=== PATIENT | female | born 1940 | race Caucasian/White ===

== ENCOUNTER 2019-10-28 05:00 | Observation (INO) | payer MEDICARE ==
[2019-10-24 16:15] LABS: ALANINE AMINOTRANSFERASE 19 IU/L (0-55); ALBUMIN 3.7 g/dL (3.5-5.0); ALBUMIN/GLOBULIN RATIO 1.2 (0.8-2.0); ALKALINE PHOSPHATASE 163 IU/L (40-150); ANION GAP 12.1 mmol/L (8-16); BLOOD UREA NITROGEN 17 mg/dL (7-26); BUN/CREATININE RATIO 23 (6-25); CALCIUM 10.4 mg/dL (8.4-10.2); CARBON DIOXIDE 27 mmol/L (22-29); CHLORIDE 106 mmol/L (98-107); CREATININE, SERUM 0.74 mg/dL (0.57-1.11); EST GLOMERULAR FILTRATION RATE > 60 ML/MIN (60-); GLUCOSE 89 mg/dL (74-118); POTASSIUM 4.1 mmol/L (3.5-5.1); SODIUM 141 mmol/L (136-145)
[2019-10-24 16:23] LABS: BASOPHILS % 0.3 % (0.0-1.0); EOSINOPHILS # (AUTO) 0.2 (0.0-0.4); EOSINOPHILS % 3.4 % (0.0-6.0); HEMATOCRIT 42.7 % (34.2-44.1); HEMOGLOBIN 14.1 g/dL (12.0-16.0); LYMPHOCYTES # (AUTO) 1.6 (1.0-3.2); LYMPHOCYTES % 27.3 % (18.0-39.1); MEAN CORPUSCULAR HEMOGLOBIN 29.6 pg (28-32); MEAN CORPUSCULAR VOLUME 89.5 fL (81-99); MONOCYTES # (AUTO) 0.6 (0.2-0.8); MONOCYTES % 9.9 % (4.4-11.3); NEUTROPHILS # (AUTO) 3.4 (2.1-6.9); NEUTROPHILS % 58.8 % (38.7-80.0); PLATELET COUNT 209 x10e3/uL (140-360); RED BLOOD COUNT 4.77 x10e6/uL (3.6-5.1); RED CELL DISTRIBUTION WIDTH 12.5 % (11.7-14.4)
--- NOTE | 2019-10-24 16:48 | Diagnostic Imaging Report ---
Chest, 2 views, 10/24/2019. History: Preop, hysterectomy. Comparison: None available. Findings: The cardiomediastinal silhouette and pulmonary vasculature are within normal limits. A calcified granuloma is noted in the left apex. The lungs are otherwise clear without evidence of consolidation or pleural effusion. Retrocardiac rounded density with air-fluid level is consistent with hiatal hernia. There are no acute osseous or soft tissue abnormalities. Impression: No acute cardiopulmonary abnormality. Moderate size hiatal hernia is noted. Signed by: Nikolas Levin on 10/24/2019 4:45 PM
[~2019-10-28] VITALS: Ht 154.9 cm; Wt 60.8 kg
[~2019-10-28 05:00] MED LIST: ALKA-SELTZER H1 EAC1 PO; ANTACID PLUS A355 M1 PO; CALCIUM ACETAT667 MG PO; FISH, FLAX, BORAGE PO; FOCUS FACTOR PO; METOPROLOL SUCC25 MG PO; MULTI-VITAMIN1 EACH PO; TIZANIDINE HCL4 MG PO; VITAMIN B-121000 MC1 SL; VITAMIN D3400 UNIT PO; Z.0.ATORVASTATIN CA1; Z.0.BACLOFEN10 MG PO; Z.0.GABAPENTIN300 MG PO; Z.0.LORTAB 7.5-5001 PO; Z.0.LOVENOX40 MG/0.4 SQ; Z.0.MELOXICAM7.5 MG PO; Z.0.METOPROLOL SUCC5 PO; Z.0.OMEPRAZOLE20 M1 PO; Z.0.ULTRAM 50MG50 MG
--- OUTSIDE RECORDS SUMMARY | 2019-10-28 05:12 | XMS REPORT ---
Author Author [facility] Address Unknown Phone Unavailable Care Team Providers Care Credit Collections Specialist Name Role Phone Brandy PALOMARES Unavailable Unavailable Payers Payer Name Policy Type Policy Number Effective Date Expiration Date Problems This patient has no known problems. Allergies, Adverse Reactions, Alerts This patient has no known allergies or adverse reactions. Medications This patient has no known medications. Results Test Description Test Time Test Comments Text Results Atomic Results Result Comments CHEST 2 VIEWS 2019-10-24 16:44:00 [place] [address] Patient Name: NADEGE CLAUDIO MR #: [id number] : 1940 Age/Sex: 78/F Req #: [id number] Adm Physician: Ordered by: ASHWIN PALOMARES MD Report #: [id number] Location: OR Room/Bed: Procedure: [id number] DX/CHEST 2 VIEWS Exam Date: 10/24/19 Exam Time: 1623 REPORT STATUS: Signed Chest, 2 views, 10/24/2019. History: Preop, hysterectomy. Comparison: None available. Findings: The cardiomediastinal silhouette and pulmonary vasculature are within normal limits. A calcified granuloma is noted in the left apex. The lungs are otherwise clear without evidence of consolidation or pleural effusion. Retrocardiac rounded density with air-fluid level is consistent with hiatal hernia. There are no acute osseous or soft tissue abnormalities. Impression: No acute cardiopulmonary abnormality. Moderate size hiatal hernia is noted. Signed by: Uri Levin on 10/24/2019 4:45 PM Dictated By: URI LEVIN MD 44 Transcribed By: ZULLY on 10/24/191644 COPY TO: ASHWIN PALOMARES MD CHEST 2 VIEWS 2019-01-06 13:45:00 [place] [address] Patient Name: NADEGE CLAUDIO MR #: [id number] : 1940 Age/Sex: 78/F Req #: [id number] Adm Physician: Ordered by: ASHWIN MARTINEZ MD Report #: [id number] Location: OR Room/Bed: Procedure: [id number] DX/CHEST 2 VIEWS Exam Date: 01/06/19 Exam Time: 1230 REPORT STATUS: Signed EXAM: CHEST 2 VIEWS, PA and lateral DATE: 01/06/[address] amp on exam: 12:43 PM INDICATION: Preoperative COMPARISON: None FINDINGS: LINES/TUBES: None LUNGS: No consolidations or edema. Left upper lobe calcified granuloma. Right mid lung zone noncalcified pulmonary nodule. CT scan of the chest is recommended for further evaluation. PLEURA: No effusions or pneumothorax. HEART AND MEDIASTINUM: Normal size and contour. There is a moderate-sized hiatal hernia present. BONES AND SOFT TISSUES: No acute findings. Degenerative spurring of the spine. IMPRESSION: 1. No acute thoracic abnormality. 2. Indeterminate right midlung zone pulmonary nodule. Signed by: Dr. Danielle Finnegan DO on 01/06/2019 1:47 PM Dictated By: DANIELLE FINNEGAN DO 1347 Transcribed By: ZULLY on 01/06/19 1343 COPY TO: ASHWIN MARTINEZ MD
[2019-10-28] MEDS ORDERED: BUPIVACAINE 0.5%/EPI 30 ML SDV INJ ONE (07:22)
[2019-10-28] MEDS ORDERED: ESTROGENS CONJUGATED VAGINAL CR 45 GM TUBE PV ONE (07:22)
[2019-10-28] MEDS ORDERED: ONDANSETRON HCL INJ 2MG/ML 2ML 2 MG/ML VIAL IV PRN (08:15)
[2019-10-28] MEDS ORDERED: HYDROCODONE/APAP 5MG-325MG TAB PO PRN (08:15)
[2019-10-28] MEDS ORDERED: SIMETHICONE 80 MG CHEW PO PRN (08:15)
[2019-10-28] MEDS ORDERED: DIPHENHYDRAMINE HCL 25 MG CAP PO PRN (08:15)
[2019-10-28] MEDS ORDERED: HYDROMORPHONE 1MG/1ML INJ IV PRN (08:15)
[2019-10-28] MEDS ORDERED: BACLOFEN 10 MG TAB PO PRN (08:15)
[2019-10-28] MEDS ORDERED: CLINDAMYCIN PHOS 900MG/ 50ML 50 ML IV ONE (08:25)
[2019-10-28] MEDS ORDERED: METRONIDAZOLE 500MG/NS 100ML 100 ML IV ONE (08:26)
[2019-10-28] MEDS: GABAPENTIN 300 MG CAP PO SCH ×3 (09:00→20:30)
[2019-10-28] MEDS ORDERED: ENOXAPARIN 30 MG/0.3 ML SYR SC SCH (09:00)
[2019-10-28] MEDS: DOCUSATE SODIUM 100 MG CAP PO SCH ×2 (09:00→16:33)
[2019-10-28] MEDS ORDERED: SUGAMMADEX SODIUM 200 MG/2 ML VIAL IV ONE (09:14)
[2019-10-28] MEDS ORDERED: FENTANYL CITRATE/PF 100MCG/2 ML INJ ONE ×2 (10:50→18:17)
[2019-10-28] MEDS: ACETAMINOPHEN 325 MG TAB PO SCH ×3 (12:00→23:50)
[2019-10-28] MEDS ORDERED: MEPERIDINE HCL INJ 25 MG/ML VIAL ONE (12:18)
[2019-10-28 13:47] VITALS: BP 152/72
[2019-10-28 13:48] VITALS: BP 152/72
[2019-10-28 13:51] VITALS: BP 152/72
[2019-10-28] MEDS ORDERED: LIDOCAINE HCL 2% LOCAL INJ 5 ML SDV VIAL INJ ONE (14:06)
[2019-10-28] MEDS ORDERED: ONDANSETRON HCL INJ 2MG/ML 2ML 2 MG/ML VIAL ONE (14:06)
[2019-10-28] MEDS ORDERED: GLYCOPYRROLATE INJ 0.2 MG/ML VIAL ONE (14:06)
[2019-10-28] MEDS ORDERED: DEXAMETHASONE SOD PHOS INJ 4 MG/ML VIAL ONE (14:06)
[2019-10-28] MEDS ORDERED: ACETAMINOPHEN 1000 MG/100 ML IV ONE (14:06)
[2019-10-28] MEDS ORDERED: ROCURONIUM BROMIDE 10 MG/ML 5ML VIAL ONE (14:06)
[2019-10-28] MEDS ORDERED: PROPOFOL IV EMULSION 10 MG/ML 20 ML VIAL ONE (14:06)
[2019-10-28] MEDS ORDERED: SEVOFLURANE INHAL SOLN 250 ML PEN BTL ONE (14:06)
[2019-10-28] MEDS ORDERED: EPHEDRINE SULFATE INJ 50 MG/ML VIAL ONE (14:06)
[2019-10-28] MEDS: HYDROCODONE/APAP 10MG-325MG TAB PO PRN (14:19)
[2019-10-28] MEDS: LACTATED RINGER'S 1,000 ML IV SCH ×3 (14:25→23:40)
[2019-10-28 16:24] VITALS: BP 141/67
[2019-10-28] MEDS: METOPROLOL SUCCINATE 25 MG TAB XL PO SCH (16:28)
[2019-10-28] MEDS: CELECOXIB 200 MG CAP PO SCH (16:33)
[2019-10-28] MEDS: OMEPRAZOLE 20 MG CAP PO SCH (16:33)
[2019-10-28 20:00] VITALS: BP 101/54
[2019-10-28] MEDS ORDERED: BISACODYL 5 MG TAB EC PO ONE (20:00)
[2019-10-28] MEDS: ENOXAPARIN 30 MG/0.3 ML SYR SC SCH (20:30)
[2019-10-28 21:00] VITALS: BP 97/56
[2019-10-28] MEDS ORDERED: TIZANIDINE HCL 4 MG TAB PO PRN (21:00)
[2019-10-29] VITALS (7 sets, daily range): BP systolic 84–119; BP diastolic 46–56
[2019-10-29 05:47] LABS: BASOPHILS % 0.2 % (0.0-1.0); EOSINOPHILS # (AUTO) 0.1 (0.0-0.4); EOSINOPHILS % 0.5 % (0.0-6.0); HEMOGLOBIN 11.2 g/dL (12.0-16.0); LYMPHOCYTES # (AUTO) 1.4 (1.0-3.2); LYMPHOCYTES % 14.8 % (18.0-39.1); MEAN CORPUSCULAR HEMOGLOBIN 29.9 pg (28-32); MEAN CORPUSCULAR HGB CONC 32.9 g/dL (31-35); MEAN CORPUSCULAR VOLUME 90.9 fL (81-99); MONOCYTES % 11.1 % (4.4-11.3); NEUTROPHILS # (AUTO) 6.7 (2.1-6.9); PLATELET COUNT 156 x10e3/uL (140-360); RED BLOOD COUNT 3.74 x10e6/uL (3.6-5.1); RED CELL DISTRIBUTION WIDTH 12.6 % (11.7-14.4)
[2019-10-29] MEDS ORDERED: METOPROLOL SUCCINATE 25 MG TAB XL PO SCH (06:00)
[2019-10-29 06:08] LABS: ANION GAP 8.2 mmol/L (8-16); BLOOD UREA NITROGEN 15 mg/dL (7-26); BUN/CREATININE RATIO 21 (6-25); CALCIUM 9.3 mg/dL (8.4-10.2); CARBON DIOXIDE 27 mmol/L (22-29); CHLORIDE 106 mmol/L (98-107); CREATININE, SERUM 0.73 mg/dL (0.57-1.11); EST GLOMERULAR FILTRATION RATE > 60 ML/MIN (60-); GLUCOSE 104 mg/dL (74-118); POTASSIUM 4.2 mmol/L (3.5-5.1); SODIUM 137 mmol/L (136-145)
[2019-10-29] MEDS: ACETAMINOPHEN 325 MG TAB PO SCH ×2 (06:29→12:35)
[2019-10-29] MEDS: OMEPRAZOLE 20 MG CAP PO SCH ×2 (06:29→16:55)
[2019-10-29] MEDS: CELECOXIB 200 MG CAP PO SCH ×2 (08:44→16:56)
[2019-10-29] MEDS: ENOXAPARIN 30 MG/0.3 ML SYR SC SCH (08:45)
[2019-10-29] MEDS: DOCUSATE SODIUM 100 MG CAP PO SCH ×2 (08:45→16:56)
[2019-10-29] MEDS: GABAPENTIN 300 MG CAP PO SCH ×2 (08:45→15:00)
[2019-10-29] MEDS: HYDROCODONE/APAP 10MG-325MG TAB PO PRN (08:57)
[2019-10-29] MEDS ORDERED: Celecoxib PO (09:13)
[2019-10-29] MEDS ORDERED: GABAPENTIN300 MG PO (09:13)
[2019-10-29] MEDS ORDERED: Hydrocodone/Apap 5MG-325MG PO (09:13)
[2019-10-29] MEDS ORDERED: COLACE100 MG PO (09:13)
[2019-10-29] MEDS ORDERED: ONDANSETRON HCL 4 MG ORAL DISINTEGRATING TAB PO PRN (11:15)
[2019-10-29] MEDS ORDERED: BACLOFEN 10 MG TAB PO SCH (15:15)
[2019-10-29] MEDS: METOPROLOL SUCCINATE 25 MG TAB XL PO SCH (16:30)
[2019-10-30] MEDS ORDERED: NITROFURANTOIN100 MG (21:10)
[2019-10-30] MEDS ORDERED: PHENAZOPYRIDIN100 MG PO (21:11)
--- NOTE | 2019-12-16 14:11 | Operative Report ---
DATE OF PROCEDURE: 10/28/2019 SURGEON: Arlene Elizabeth MD STUDENT SUPPORT SERVICES DIRECTOR: Radha Thompson MD PREOPERATIVE DIAGNOSIS: Pelvic organ prolapse. POSTOPERATIVE DIAGNOSIS: Pelvic organ prolapse. PROCEDURE PERFORMED: Transvaginal hysterectomy with a right salpingectomy and an anterior and posterior colporrhaphy, and a sacrospinous colpopexy. ANESTHESIA: General. ESTIMATED BLOOD LOSS: 350 mL. COMPLICATIONS: None. FINDINGS: A small uterus with complete procidentia, atrophic vaginal mucosa, unable to palpate the adnexa bilaterally as they were small and atrophic. SPECIMEN: Uterus with left fallopian tube. INDICATIONS: The patient is a 78-year-old postmenopausal female with pelvic organ prolapse, desiring definitive surgical management. PROCEDURE NOTE: The risks, benefits, indications, and alternatives of the procedure were reviewed with the patient and informed consent was obtained. The patient was taken operating room, where general anesthesia was obtained. She was placed in dorsal lithotomy position in [facility] stirrups, prepped and draped in typical sterile fashion and a time-out was done. A weighted speculum was placed in the vagina and the cervix was grasped with two single-tooth tenaculum. A solution of Marcaine and epinephrine was injected circumferentially around the cervix. The cervix was circumscribed and the bladder was dissected off with sharp dissection. The posterior cul-de-sac was sharply entered and a long weighted gooseneck retractor was placed in the cul-de-sac and replacement of the standard weighted speculum. The right uterosacral ligament was then identified, clamped with a zeppelin clamp, divided, and suture ligated with 0-Vicryl in a like fashion. The left uterosacral ligament was clamped, divided, and suture ligated. The left cardinal ligament and uterine vessels were then identified. Sequentially clamped, coagulated and cut with the LigaSure device, this was followed by sequential clamping coagulation and cutting of the cardinal ligaments and uterine vessels on the right with a LigaSure device. The anterior cul-de-sac was sharply dissected until the vesicouterine peritoneal reflection was identified and this was entered sharply. The right utero-ovarian ligament and fallopian tube were clamped with a curved zeppelin clamp, divided, and suture ligated. This was again performed on the contralateral side. The uterus and cervix were then removed over through the vagina and sent for pathology. The adnexa on the left were unable to be visualized and the right adnexa was unable to be visualized except for the fallopian tube. This was grasped with a Elk clamp and the fallopian tube was clamped with a curved zeppelin clamp, divided and suture ligated. This was sent with the remainder of the specimen. All hysterectomy pedicles were then inspected, noted to be hemostatic. The lateral edges of the vaginal cuff were then held with Allis clamps on tension while solution of Marcaine with epinephrine was injected just below the vaginal mucosa throughout the area of the cystocele. Several Allis clamps were placed 3-4 cm apart of the midline of the anterior vaginal wall. The Metzenbaum scissors were used to undermine the mucosa from the underlying fascia. The mucosa was then opened with the scissors in the midline to within 1 cm of the urethral meatus. The vagina was opened. The edges of mucosa were grasped with hemostats. The fascia was from the vaginal mucosa using both sharp and blunt dissection until the bladder and urethra were from the vaginal mucosa and clearly identified. A finger was then inserted through the incision in the vaginal mucosa and used to bluntly dissect the rectovaginal space on the patient's right side. The ischial spine and sacrospinous ligament were palpated and loose areolar tissue was bluntly dissected off the ligament. A zone approximately 1-2 cm medial to the ischial spine was selected for insertion of the suture. A Capio SLIM suture capturing device was then loaded with zero Vicryl suture and was introduced into the space and passed through the sacrospinous ligament. This entire procedure was then repeated on the patient's contralateral side. The ends of the suture previously inserted through the sacrospinous ligament were then placed through the muscular layer of the vagina again using the Capio SLIM device. Attention was then returned to the anterior repair, which was started by placing 0 Vicryl sutures in the pubovesical cervical fascia starting approximately 1 cm below the urethral meatus. The remaining fascia was plicated in the midline with multiple interrupted 0 Vicryl sutures until the entire cystocele had been reduced. The edges of the vaginal mucosa were held on tension. The excessive vaginal mucosa was trimmed away using Sousa scissors. The vaginal mucosa was then sutured in the midline with continuous 0 Vicryl. The vaginal cuff was then closed. The vaginal cuff was inspected and noted to be hemostatic. Attention was then returned to the sacrospinous ligament fixation, where the previously clamped sutures were tied drawing the vaginal vault directly to the level of the ligaments and then affixing them in place. The apices of the posterior fourchette were then grasped with Allis clamps and a solution of Marcaine with epinephrine was injected just below the vaginal mucosa throughout the area of the rectocele. A transverse incision was made with a scalpel at the level of the hymenal ring. An additional Allis clamp was placed in the midline at the top of the rectocele and two hemostats were placed at the edge of the mucosa for retraction. Metzenbaum scissors were then inserted under the posterior vaginal mucosa dissecting the posterior mucosa off the rectovaginal fascia. A midline incision was then made in the mucosa and possibly repeated until the superior apex of the rectocele was reached. Interrupted sutures of 0 Vicryl were placed to reapproximate the superficial transverse perineal muscle and levator ani muscle respectively. The vagina was then closed over this repair using running 2-0 Vicryl suture. The bulbocavernosus was reapproximated in the midline with a single interrupted 2-0 Vicryl suture. The perineum was then repaired using 2-0 Vicryl in a subcuticular fashion. Vaginal packing soaked in Premarin cream was placed in the vagina and all instruments were removed. The patient was awakened from general anesthesia and brought to recovery room in stable condition. All sponge, lap, needle, and instrument counts were correct x2. MD ASHVIN Faustin/MODL /[id number]
== END 2019-10-29 18:03 | disposition home or self-care (01) ==
LOC: OR 05:00 → PACU V 08:12 → MED/SURG 13:20
PROVIDERS: ADMIT Obstetrics & Gynecology Obstetrics; ATTEND Obstetrics & Gynecology Obstetrics
DX: N81.3 Complete uterovaginal prolapse (principal); R33.9 Retention of urine, unspecified; Z01.810 Encounter for preprocedural cardiovascular examination; Z01.812 Encounter for preprocedural laboratory examination; Z01.811 Encounter for preprocedural respiratory examination; Z88.0 Allergy status to penicillin; K44.9 Diaphragmatic hernia without obstruction or gangrene
CPT/HCPCS: 36415; 71046; 80048; 80053; 85025; 86850; 86900; 88307; 93005; G0378; J1100; J1170; J1650; J2001; J2175; J2405; J3010; J7121

== ENCOUNTER 2019-10-30 13:17 | Inpatient (IN) | payer MEDICARE, OTHER ==
[~2019-10-30] VITALS: Ht 154.9 cm; Wt 61.5 kg
[~2019-10-30 13:17] MED LIST changes: +COLACE100 MG PO; +Celecoxib PO; +GABAPENTIN300 MG PO; +Hydrocodone/Apap 5MG-325MG PO
[2019-10-30] MEDS ORDERED: MORPHINE SULFATE INJ 4 MG/ML INJ 1ML IV STA (13:25)
[2019-10-30] MEDS ORDERED: SODIUM CHLORIDE 0.9% 1000ML 1,000 ML IV STA (13:25)
[2019-10-30 14:10] LABS: BASOPHILS % 0.2 % (0.0-1.0); EOSINOPHILS # (AUTO) 0.1 (0.0-0.4); EOSINOPHILS % 0.8 % (0.0-6.0); HEMATOCRIT 37.3 % (34.2-44.1); HEMOGLOBIN 12.3 g/dL (12.0-16.0); LYMPHOCYTES # (AUTO) 0.9 (1.0-3.2); LYMPHOCYTES % 9.4 % (18.0-39.1); MEAN CORPUSCULAR HEMOGLOBIN 29.9 pg (28-32); MEAN CORPUSCULAR VOLUME 90.5 fL (81-99); MONOCYTES # (AUTO) 0.8 (0.2-0.8); MONOCYTES % 7.8 % (4.4-11.3); NEUTROPHILS # (AUTO) 7.8 (2.1-6.9); NEUTROPHILS % 81.5 % (38.7-80.0); PLATELET COUNT 164 x10e3/uL (140-360); RED BLOOD COUNT 4.12 x10e6/uL (3.6-5.1); RED CELL DISTRIBUTION WIDTH 12.6 % (11.7-14.4)
[2019-10-30 14:27] LABS: ALANINE AMINOTRANSFERASE 29 IU/L (0-55); ALBUMIN 3.3 g/dL (3.5-5.0); ALBUMIN/GLOBULIN RATIO 1.1 (0.8-2.0); ALKALINE PHOSPHATASE 150 IU/L (40-150); BLOOD UREA NITROGEN 11 mg/dL (7-26); BUN/CREATININE RATIO 17 (6-25); CARBON DIOXIDE 26 mmol/L (22-29); CHLORIDE 107 mmol/L (98-107); CREATININE, SERUM 0.65 mg/dL (0.57-1.11); EST GLOMERULAR FILTRATION RATE > 60 ML/MIN (60-); GLUCOSE 87 mg/dL (74-118); SODIUM 141 mmol/L (136-145)
--- NOTE | 2019-10-30 16:14 | Diagnostic Imaging Report ---
Exam: CT abdomen and pelvis Clinical history: Left lower quadrant pain Technique: Helical images of the abdomen and pelvis were obtained after IV contrast administration DOSE REDUCTION: The exams was performed according to the departmental dose-optimization program which includes automated exposure control, adjustment of the mA and/or kV according to patient size and/or use of iterative reconstruction technique. Findings: The lung bases are clear. There is no evidence of pleural effusion. The cardiac size is within normal limits. A metallic stent is noted extending from the common bile duct into the proximal duodenum. Pneumobilia is visualized in the left intrahepatic ductal likely associated with stent placement. The gallbladder has been removed. The spleen, adrenal glands, kidneys, and pancreas appear unremarkable. The small and large bowels are normal in caliber without evidence of obstruction. Moderate retained feces are noted throughout the colon. Visualization of the lower pelvic regions limited secondary to right hip prosthesis creating being hardening artifact. A Brandt catheter is noted within the bladder lumen. The uterus appears grossly unremarkable. A 2.8 cm lytic lesion is noted in the L1 vertebral body which may represent hemangioma. However, a metastatic lesion cannot be excluded. MR is recommended for further assessment. Impression: 1. Status post internal biliary stent insertion with postoperative changes. 2. 2.8 cm lytic lesion in the L1 vertebral body, although this may represent a hemangioma, metastatic disease cannot be excluded. MR is recommended for further assessment. 3. Status post Brandt catheter insertion. Signed by: Dr. Davin Zepeda MD on 10/30/2019 4:11 PM
[2019-10-30] MEDS ORDERED: IOPAMIDOL 370 MG/ML 200 ML INFUS..BTL INJ ONE (16:28)
[2019-10-30] MEDS ORDERED: SODIUM CHLORIDE 0.9% 50ML 50 ML ONE (16:28)
[2019-10-30] MEDS ORDERED: MORPHINE SULFATE 2 MG/ML SYR 1ML IV PRN (16:30)
[2019-10-30] MEDS: SODIUM CHLORIDE 0.9% 1000ML 1,000 ML IV SCH (16:57)
--- NOTE | 2019-10-30 17:58 | Diagnostic Imaging Report ---
EXAM: HIP RIGHT 2-3 VW (+/- PELVIS) DATE: 10/30/2019 4:16 PM INDICATION: ^R hip pain COMPARISON: CT pelvis, 10/30/2019 FINDINGS: AP pelvis and oblique views of the right hip were obtained. Right hip arthroplasty hardware is seen without obvious evidence for failure or loosening. There is minimal lucency adjacent to the tip of the prosthesis in the mid femoral shaft but not elsewhere. No displaced fracture or dislocation identified. Incidentally noted is contrast in the urinary bladder from previous CT, outlining a Brandt catheter. IMPRESSION: No acute bony abnormality. Arthroplasty hardware is seen at the right hip. Signed by: Dr. Keith Moura M.D. on 10/30/2019 5:56 PM
[2019-10-30] MEDS: MORPHINE SULFATE INJ 4 MG/ML INJ 1ML IV PRN ×2 (19:14→23:33)
[2019-10-30] MEDS: ONDANSETRON HCL INJ 2MG/ML 2ML 2 MG/ML VIAL IV PRN (19:15)
--- NOTE | 2019-10-30 19:50 | NUR ---
REPORT CALLED FROM ER, PATIENT PENDING ARRIVAL TO THE FLOOR, AWAKE ALERT, INTRACTABLE RIGHT HIP PAIN, WITH NO FALL, STATES PATIENT UNABLE TO BEAR WEIGHT ON LEG HX OF HTN, ACID REFLUX, HYPERLIPIDEMIA, BLADDER PROLAPSE WITH REPAIR PREVIOUS VISIT THIS MONTH, CONSULT CALLED TO [facility] PER ER
[2019-10-30 20:25] VITALS: BP 124/71
--- NOTE | 2019-10-30 20:30 | NUR ---
ARRIVED TO THE FLOOR AOX4, ABLE TO MAKE NEEDS KNOWN, VSS, AFEBRILE, SKIN WARM DRY, MEEHAN IN PLACE UPON ADMISSION FOR RETENTION S/P PROLAPSE REPAIR, ORIENTED TO STAFF, AND ROOM, CALL LIGHT PLACE WITHIN REACH
[2019-10-30 20:41] VITALS: BP 124/71
[2019-10-30] MEDS ORDERED: NITROFURANTOIN100 MG (21:10)
[2019-10-30] MEDS ORDERED: PHENAZOPYRIDIN100 MG PO (21:11)
[2019-10-31] VITALS (10 sets, daily range): BP systolic 111–138; BP diastolic 61–78
[2019-10-31] MEDS: SODIUM CHLORIDE 0.9% 1000ML 1,000 ML IV SCH ×3 (02:15→12:00)
--- NOTE | 2019-10-31 02:58 | NUR ---
HOURLY ROUNDING COMPLETED PATIENT RESTING NO DISTRESS C/O LOWER LEG PAIN 11/17, INFORMED PATIENT TIME OF PRN MEDICATION DUE, SHE IS OKAY WITH TIME, WILL CONTINUE TO MONITOR
[2019-10-31 05:44] LABS: BASOPHILS % 0.2 % (0.0-1.0); EOSINOPHILS # (AUTO) 0.3 (0.0-0.4); EOSINOPHILS % 3.1 % (0.0-6.0); HEMATOCRIT 34.2 % (34.2-44.1); HEMOGLOBIN 10.9 g/dL (12.0-16.0); LYMPHOCYTES # (AUTO) 1.3 (1.0-3.2); LYMPHOCYTES % 15.3 % (18.0-39.1); MEAN CORPUSCULAR HEMOGLOBIN 29.9 pg (28-32); MEAN CORPUSCULAR HGB CONC 31.9 g/dL (31-35); MEAN CORPUSCULAR VOLUME 93.7 fL (81-99); MONOCYTES # (AUTO) 0.9 (0.2-0.8); MONOCYTES % 10.4 % (4.4-11.3); NEUTROPHILS # (AUTO) 6.2 (2.1-6.9); NEUTROPHILS % 70.5 % (38.7-80.0); PLATELET COUNT 155 x10e3/uL (140-360); RED BLOOD COUNT 3.65 x10e6/uL (3.6-5.1); RED CELL DISTRIBUTION WIDTH 12.9 % (11.7-14.4)
[2019-10-31] MEDS: ONDANSETRON HCL INJ 2MG/ML 2ML 2 MG/ML VIAL IV PRN ×4 (05:53→22:05)
[2019-10-31] MEDS: MORPHINE SULFATE INJ 4 MG/ML INJ 1ML IV PRN ×4 (05:53→22:05)
[2019-10-31 06:04] LABS: ANION GAP 7.1 mmol/L (8-16); BLOOD UREA NITROGEN 11 mg/dL (7-26); BUN/CREATININE RATIO 19 (6-25); CALCIUM 9.3 mg/dL (8.4-10.2); CARBON DIOXIDE 26 mmol/L (22-29); CHLORIDE 112 mmol/L (98-107); CREATININE, SERUM 0.58 mg/dL (0.57-1.11); EST GLOMERULAR FILTRATION RATE > 60 ML/MIN (60-); GLUCOSE 79 mg/dL (74-118); POTASSIUM 4.1 mmol/L (3.5-5.1); SODIUM 141 mmol/L (136-145)
--- NOTE | 2019-10-31 07:03 | NUR ---
BSSR GIVEN TO ONCOMING RN, PATIENT AWAKE ALERT, REPORTS DECREASE PAIN LEVEL R/T RIGHT HIP PAIN, REPORT MORPHINE & ZOFRAN IV GIVEN AT 0553, VIA LAC#20G, IV PATENT FLUSHES WELL, NO S/SX OF INFILTRATION NOTED, BED IN LOWEST POSITION, CALL LIGHT WITHIN REACH, PT CONTINUES TO BE COMPLETE BEDREST
[2019-10-31] MEDS ORDERED: NON-FORMULARY MEDICATION (Omeprazole 20 MG) PO SCH (10:30)
--- NOTE | 2019-10-31 10:30 | NUR ---
H&P cc: right hip pain HPI: 78yoF, PCP none, developed right hip pain. Pt has hx right replacement.Pt also had recent urinary retention 2 days ago, after badder lift, meehan placed and pt sent home. PMH: OA, HTN, GERD, Biliary ds, urinary retention, right hip OA s/p replacement PShx: Right MOE; bladder lift 10/2019 Allergies; see emr FH/SH; no cigs meds; see MAR ROS; no f/c/s/N/V/D/SEBASTIAN/cp/sob/skin rash/back pain/leg pain/confusion/focal limb weakness v/s; revd PE tired appearing anicteric ns1s2 mod bs MEEHAN soft nt nd; right hip scar skin dry n. affect a&ox3; womack labs/med revd A/P: 78yoF Right hip arthralgia- ortho consulted Urinary retention- emehan for few days already; consult urology OA- prn pain meds Lytic lesion lumbar vertebra L1- unclear; will need bx; no hx breast cancer HTN- home med GERD- ppi Prop: ppi dispo: Ken Ohara MD, PhD.
[2019-10-31] MEDS ORDERED: PANTOPRAZOLE SOD 40 MG TABEC PO PRN ×2 (11:00)
[2019-10-31] MEDS: GABAPENTIN 300 MG CAP PO SCH ×2 (15:40→22:04)
[2019-10-31] MEDS ORDERED: GABAPENTIN 300 MG CAP PO SCH (17:00)
--- NOTE | 2019-10-31 17:00 | NUR ---
Received patient to room 108, she is in stable condition. Oriented to new room and policies. Call light within reach. Bed in the lowest position.
[2019-10-31] MEDS: DOCUSATE SODIUM 100 MG CAP PO SCH (17:19)
--- NOTE | 2019-10-31 19:00 | NUR ---
RECEIVED PATIENT IN BEDSIDE SHIFT REPORT. PATIENT RESTING IN BED AT THIS TIME, REPORTS MILD PAIN TO R HIP AND GAS DISCOMFORT. MEEHAN DRAINING CLEAR, YELLOW URINE TO GRAVITY, SECURED TO R THIGH, HANGING AT BEDSIDE, OFF OF FLOOR. NO S&S OF DISTRESS NOTED. NS RUNNING TO L AC 20G @ 125ML/HR, ASYMPTOMATIC, INTACT, AND PATENT. BED LOCKED IN LOWEST POSITION, SIDE RAILS UPX2, CALL LIGHT IN REACH.
--- NOTE | 2019-10-31 19:11 | NUR ---
BEDSIDE SHIFT REPORT GIVEN TO ONCOMING NURSE. PATIENT IS IN STABLE CONDITION, NO ACUTE DISTRESS. CALL LIGHT WITHIN REACH. BED IN THE LOWEST POSITION.
[2019-10-31] MEDS: TIZANIDINE HCL 4 MG TAB PO SCH (22:04)
--- NOTE | 2019-10-31 23:00 | NUR ---
URINE CULTURE OBTAINED AND SENT TO LAB AT THIS TIME.
[2019-10-31 23:20] LABS: CLARITY,URINE SL CLOUDY (CLEAR); COLOR,URINE YELLOW (YELLOW); LEUKOCYTE ESTERASE ,URINE 1+ (NEGATIVE); NITRITE,URINE POSITIVE (NEGATIVE); PROTEIN,URINE DIPSTICK NEGATIVE (NEGATIVE)
[2019-10-31 23:21] LABS: BILIRUBIN,URINE NEGATIVE (NEGATIVE); KETONES,URINE NEGATIVE (NEGATIVE); URINE UROBILINOGEN 1 mg/dL (0.2 - 1)
[2019-10-31 23:27] LABS: BACTERIA,URINE MANY /HPF; EPITHELIAL CELLS,URINE FEW /LPF; RENAL EPITHELIAL CELLS,URINE FEW; TRANSITIONAL EPI CELLS,URINE FEW; WBC,URINE (MAN) >50 /HPF (0-5)
[2019-11-01] VITALS (8 sets, daily range): BP systolic 111–150; BP diastolic 65–77
--- NOTE | 2019-11-01 00:24 | Consultation ---
DATE OF CONSULTATION: 10/31/2019 Urology Consultation REASON FOR CONSULTATION: Urinary retention. HISTORY OF PRESENT ILLNESS: Kelsie Estrada is a 78-year-old woman who on October 28, 2019, underwent a total vaginal hysterectomy with a right salpingectomy and an anterior and posterior repair and a sacrospinous colpopexy. The patient was discharged the next day. She returned to the emergency room yesterday with urinary retention and intractable right hip pain. The patient denies hematuria and she denies problems with recurrent urinary tract infection. Denies any urolithiasis. Denies ever seeing a urologist. It is unclear to me at this point in time, how much was in the bladder when the Brandt catheter was placed by the ER. PAST MEDICAL AND SURGICAL HISTORY: 1. Status post cholecystectomy. 2. Recurrent pancreatitis with needing biliary stent. 3. Status post right total hip arthroplasty. 4. Neuropathy. 5. Severe osteoporosis. SOCIAL HISTORY: The patient denies smoking, ethanol drug use. She used to work at [employer]. FAMILY HISTORY: Noncontributory to the active urological problems. ALLERGIES: PENICILLIN. CURRENT MEDICATIONS: Please refer the MAR. REVIEW OF SYSTEMS: Discussed as above in history of present illness, past medical history, otherwise negative for all systems. PHYSICAL EXAMINATION: GENERAL: A pleasant 78-year-old woman lying in bed, no apparent distress. VITAL SIGNS: She is currently afebrile. Vital signs are currently stable. ABDOMEN: Soft, nondistended, nontender without costovertebral angle tenderness. KIDNEYS: Not palpable without hepatosplenomegaly. No obvious evidence of hernia. GENITOURINARY: There is a Brandt catheter in place draining clear urine out. For the remaining physical examination systems please refer to the admission history and physical in the chart and the ERT sheet. LABORATORY STUDIES: White blood cell count is 8730, hemoglobin 10.9, and platelets a 155,000. The patient's creatinine is normal at 0.58. There are no urological tests during this visit. ASSESSMENT: 1. Urinary retention. 2. Brandt catheter in situ. 3. Possible neurogenic bladder from neuropathy. 4. Anemia. PLAN: 1. Leave the Brandt catheter in place. 2. Evaluate and improve right hip pain. 3. Follow up in the office for urodynamics test as outpatient. 4. I will order UA and urinalysis with microscopy and urine culture and sensitivity. 5. I defer the hematological and electrolyte abnormalities per the primary team. Thank you much for involving us in care of your patient. We will be happy to follow her along with you as well as an outpatient. Danny Serrano MD OH/MODL /[id number] cc: MD Telly Yen MD
[2019-11-01] MEDS: SODIUM CHLORIDE 0.9% 1000ML 1,000 ML IV SCH ×3 (01:13→21:23)
--- NOTE | 2019-11-01 06:06 | NUR ---
IM- progress note O/N; see below ROS; no f/c/s/N/V/D/SEBASTIAN/cp/sob/skin rash/back pain/leg pain/confusion/focal limb weakness v/s; revd PE tired appearing anicteric ns1s2 mod bs MEEHAN soft nt nd; right hip scar skin dry n. affect a&ox3; womack labs/med revd A/P: 78yoF Right hip arthralgia- ortho consulted Urinary retention- meehan for few days already; consult urology OA- prn pain meds Lytic lesion lumbar vertebra L1- unclear; will need bx; no hx breast cancer HTN- home med GERD- ppi Prop: ppi dispo: 11/01 PT; d/c planning with PT; L1 further eval outpt- pt informed. Ken Ohara MD, PhD.
[2019-11-01] MEDS ORDERED: AZTREONAM 1 GM/NS 50 ML 50 ML IV SCH (06:15)
[2019-11-01] MEDS ORDERED: ACETAMINOPHEN/CODEINE 300MG - 30MG TAB PO PRN (06:15)
[2019-11-01] MEDS: ONDANSETRON HCL INJ 2MG/ML 2ML 2 MG/ML VIAL IV PRN (06:40)
[2019-11-01] MEDS: MORPHINE SULFATE INJ 4 MG/ML INJ 1ML IV PRN ×3 (06:40→22:47)
--- NOTE | 2019-11-01 08:11 | NUR ---
Spoke to Dr. Ohara. He stated to admit to inpatient w/ complicated UTI post urology procedure. He also wants SNF eval due to the UTI and hip pain.
[2019-11-01] MEDS: AZTREONAM 1 GM/NS 50 ML 50 ML IV SCH ×3 (08:47→23:39)
[2019-11-01] MEDS: GABAPENTIN 300 MG CAP PO SCH ×3 (08:47→21:22)
[2019-11-01] MEDS: METOPROLOL SUCCINATE 25 MG TAB XL PO SCH (08:47)
[2019-11-01] MEDS: DOCUSATE SODIUM 100 MG CAP PO SCH ×2 (08:47→17:28)
[2019-11-01] MEDS ORDERED: LORAZEPAM INJ 2 MG/ML VIAL IV NR (10:30)
--- NOTE | 2019-11-01 11:03 | NUR ---
Medicated patient with the first dose of Ativan pre MRI at at this time.
[2019-11-01] MEDS: LORAZEPAM INJ 2 MG/ML VIAL IV NR ×2 (11:36→11:45)
--- NOTE | 2019-11-01 11:45 | NUR ---
Patient medicated before getting to MRI machine at this time.
--- NOTE | 2019-11-01 12:07 | NUR ---
Received SNF order. Met with pt, discussed referral process and freedom to choose the facility, pt chose [facility]. Choice letter signed and placed in the chart. Will fax clinicals when PT eval is completed
[2019-11-01] MEDS: SENNOSIDES 8.6 MG TAB PO SCH (17:28)
--- NOTE | 2019-11-01 19:00 | NUR ---
REPORT RECEIVED FROM DAY RN. PT ALERT AND ORIENTED X4. RESPIRATIONS EVEN AND UNLABORED.DENIES PAIN. ABDOMEN SOFT. MEEHAN CATH PATENT- TO GRAVITY. PIV LEFT AC. NS INFUSING AT 125ML/HR. TURNING PT Q 2HRS . PT HAVING CLEAR VAGINAL DISCHARGE.CALL LIGHT WITHIN REACH. BED IN LOW POSITION. CONTINUE TO MONITOR PT.
--- NOTE | 2019-11-01 19:26 | NUR ---
Bedside shift report given to oncoming nurse. Patient is resting in bed, no acute distress noted. Call light within reach. Bed in the lowest position.
[2019-11-01] MEDS: TIZANIDINE HCL 4 MG TAB PO SCH (21:22)
[2019-11-02] VITALS (9 sets, daily range): BP systolic 104–174; BP diastolic 63–87
[2019-11-02] MEDS: SODIUM CHLORIDE 0.9% 1000ML 1,000 ML IV SCH ×4 (00:30→22:42)
[2019-11-02] MEDS: MORPHINE SULFATE INJ 4 MG/ML INJ 1ML IV PRN ×4 (05:56→22:44)
[2019-11-02] MEDS: AZTREONAM 1 GM/NS 50 ML 50 ML IV SCH ×3 (06:28→22:41)
--- NOTE | 2019-11-02 06:48 | NUR ---
Received bedside shift report from off going nurse. Patient is in stable condition, no acute distress noted. Call light within reach. Bed in the lowest position.
--- NOTE | 2019-11-02 07:18 | NUR ---
IM- progress note O/N; see below ROS; no f/c/s/N/V/D/SEBASTIAN/cp/sob/skin rash/back pain/leg pain/confusion/focal limb weakness v/s; revd PE tired appearing anicteric ns1s2 mod bs MEEHAN soft nt nd; right hip scar skin dry n. affect a&ox3; womack labs/med revd A/P: 78yoF Right hip arthralgia- ortho consulted Urinary retention- meehan for few days already; consult urology OA- prn pain meds Lytic lesion lumbar vertebra L1- unclear; will need bx; no hx breast cancer HTN- home med GERD- ppi Prop: ppi dispo: 11/01 PT; d/c planning with PT; L1 further eval outpt- pt informed. 11/02 INtractable hip pain- f/u MRI report; cont pain control; GNR UTI- cont abx; Ken Ohara MD, PhD.
[2019-11-02] MEDS: SENNOSIDES 8.6 MG TAB PO SCH ×2 (08:51→16:54)
[2019-11-02] MEDS: DOCUSATE SODIUM 100 MG CAP PO SCH ×2 (08:51→16:54)
[2019-11-02] MEDS: GABAPENTIN 300 MG CAP PO SCH ×3 (08:51→20:41)
[2019-11-02] MEDS: METOPROLOL SUCCINATE 25 MG TAB XL PO SCH (08:52)
[2019-11-02] MEDS ORDERED: BISACODYL 5 MG TAB EC PO ONE (09:00)
[2019-11-02] MEDS: ONDANSETRON HCL INJ 2MG/ML 2ML 2 MG/ML VIAL IV PRN (12:35)
--- NOTE | 2019-11-02 19:00 | NUR ---
REPORT RECEIVED FROM DAY RN. PT ALERT AND ORIENTED X3. RESPIRATIONS EVEN AND UNLABORED. 22G PIV IN RT HAND. ABDOMEN SOFT. BOWEL SOUNDS PRESENT. NO BM AFTER DULCOLAX PO THIS AM. MEEHAN TO GRAVITY - PATENT- DRAINING CLEAR YELLOW URINE.CALL LIGHT WITHIN REACH. BED IN LOW POSITION. DENIES PAIN.
--- NOTE | 2019-11-02 19:22 | NUR ---
Bedside shift report given to oncoming nurse. Patient is resting in bed, no acute distress noted. Call light within reach. Bed in the lowest position.
[2019-11-02] MEDS: TIZANIDINE HCL 4 MG TAB PO SCH (20:43)
[2019-11-03] VITALS (8 sets, daily range): BP systolic 115–165; BP diastolic 59–86
[2019-11-03] MEDS: AZTREONAM 1 GM/NS 50 ML 50 ML IV SCH ×3 (06:01→21:21)
[2019-11-03] MEDS: MORPHINE SULFATE INJ 4 MG/ML INJ 1ML IV PRN ×3 (07:38→16:05)
[2019-11-03] MEDS: ONDANSETRON HCL INJ 2MG/ML 2ML 2 MG/ML VIAL IV PRN ×3 (07:38→16:05)
[2019-11-03] MEDS: SODIUM CHLORIDE 0.9% 1000ML 1,000 ML IV SCH ×2 (07:45→15:00)
--- NOTE | 2019-11-03 08:12 | NUR ---
COMPLETED RTF AND PASRR AND FAXED CLINICALS THAT WERE LEFT ON DESK TO FACILITY. MADE PACKET FOR NURSES STATION. NOTIFED REP TO LET KNOW ON WAY AND PUSH AUTH.
--- NOTE | 2019-11-03 08:54 | Diagnostic Imaging Report ---
TECHNIQUE: Magnetic resonance imaging of the right HIP was performed WITHOUT injected contrast. HISTORY: Pain COMPARISON: None available. FINDINGS: Patient is status post right total hip arthroplasty. Susceptibility artifact limits its evaluation. A fluid collection is seen extending posteriorly from the joint space measuring approximately 2 x 2 x 2 cm. Collection is fluid sensitive signal. Degenerative arthrosis of the left hip with degenerative labral tearing, high-grade cartilage loss, and subchondral edema. The remainder of the bone marrow signal is normal. Degenerative disc disease at multiple levels. Atrophy of the musculature without focality. IMPRESSION: Right total hip arthroplasty with metal artifact limits evaluation. Fluid collection extending posteriorly from the right hip pseudocapsule may reflect bursitis or adverse local soft tissue reaction (if the patient had a metal on metal arthroplasty) Signed by: Dr. William Sears M.D. on 11/03/2019 8:52 AM
[2019-11-03] MEDS: GABAPENTIN 300 MG CAP PO SCH ×3 (09:25→20:25)
[2019-11-03] MEDS: SENNOSIDES 8.6 MG TAB PO SCH ×2 (09:25→17:45)
[2019-11-03] MEDS: DOCUSATE SODIUM 100 MG CAP PO SCH ×2 (09:25→17:45)
[2019-11-03] MEDS: METOPROLOL SUCCINATE 25 MG TAB XL PO SCH (09:32)
--- NOTE | 2019-11-03 10:16 | NUR ---
IM- progress note O/N; see below ROS; no f/c/s/N/V/D/SEBASTIAN/cp/sob/skin rash/back pain/leg pain/confusion/focal limb weakness v/s; revd PE tired appearing anicteric ns1s2 mod bs MEEHAN soft nt nd; right hip scar skin dry n. affect a&ox3; womack labs/med revd A/P: 78yoF Right hip arthralgia- ortho consulted Urinary retention- meehan for few days already; consult urology OA- prn pain meds Lytic lesion lumbar vertebra L1- unclear; will need bx; no hx breast cancer HTN- home med GERD- ppi Prop: ppi dispo: 11/01 PT; d/c planning with PT; L1 further eval outpt- pt informed. 11/02 INtractable hip pain- f/u MRI report; cont pain control; GNR UTI- cont abx; 11/03 E.coli UTI- abx; cont care; Bursitis? may benefit from Steroid IA shot? Start meloxicam. d/c planning; SNF? Ken Ohara MD, PhD.
--- NOTE | 2019-11-03 13:33 | NUR ---
INFORMED ME PT DOES NOT WANT SNF PRIOR SELECTED. I WENT TO SPEAK WITH PT AND SHE STATES SHE WANTS TO GO TO A BUILDING WHERE HER PRIMARY CARE DOCTOR GOES, GAVE HER THE ONES IN NETWORK AND SHE CHOSE [facility]. OBTAINED NEW CHOICE FORM FILED IN CHART FIXED PASRR AND RTF AND FAXED CLINICALS TO BUILDING.
[2019-11-03] MEDS: MELOXICAM 7.5 MG TAB PO SCH ×2 (15:38→17:45)
[2019-11-03] MEDS: CYCLOBENZAPRINE HCL 10 MG TAB PO SCH ×2 (15:38→20:25)
--- NOTE | 2019-11-03 19:05 | NUR ---
Received the patient in report.allert oriented.no resp.distress.castellon is in place.bed locked and in lowest position.phone and call light within reach.instructed to call for assistance as needed.
[2019-11-03] MEDS: TIZANIDINE HCL 4 MG TAB PO SCH (20:25)
--- NOTE | 2019-11-03 23:05 | NUR ---
Repositioned.castellon care given.patient tolerated well.bed alarm on.keep monitor the patient.
[2019-11-04 00:14] VITALS: BP 114/55
[2019-11-04] MEDS: SODIUM CHLORIDE 0.9% 1000ML 1,000 ML IV SCH ×2 (02:09→08:30)
[2019-11-04 04:02] VITALS: BP 117/67
[2019-11-04] MEDS: AZTREONAM 1 GM/NS 50 ML 50 ML IV SCH ×2 (05:41→14:18)
[2019-11-04] MEDS: CYCLOBENZAPRINE HCL 10 MG TAB PO SCH ×2 (06:08→14:18)
--- NOTE | 2019-11-04 06:34 | NUR ---
D/C summary Principal dx: Right hip arthralgia- ortho consulted Urinary retention- castellon for few days already; consult urology OA- prn pain meds Lytic lesion lumbar vertebra L1- unclear; will need bx; no hx breast cancer Secondary Dx; HTN- home med GERD- ppi Prop: ppi dispo: 11/01 PT; d/c planning with PT; L1 further eval outpt- pt informed. 11/02 INtractable hip pain- f/u MRI report; cont pain control; GNR UTI- cont abx; 11/03 E.coli UTI- abx; cont care; Bursitis? may benefit from Steroid IA shot? Start meloxicam. d/c planning; SNF? 2- cont care; d/c to SNF stable f/u team at snf and PCP 1 week d/c>35mins Ken Ohara MD, PhD.
--- NOTE | 2019-11-04 07:00 | NUR ---
BED SIDE SHIFT REPORT GIVEN TO ONCOMING RN.STABLE CONDITION.
--- NOTE | 2019-11-04 07:00 | NUR ---
Bedside report done. pt is sleeping in bed, no s/s of distress. call light within reach and bed safety in place
[2019-11-04 08:17] VITALS: BP 148/67
[2019-11-04] MEDS: GABAPENTIN 400 MG CAP PO SCH ×2 (08:44→14:18)
[2019-11-04] MEDS: DOCUSATE SODIUM 100 MG CAP PO SCH (08:44)
[2019-11-04] MEDS: SENNOSIDES 8.6 MG TAB PO SCH (08:44)
[2019-11-04] MEDS: MELOXICAM 7.5 MG TAB PO SCH (08:44)
[2019-11-04] MEDS: METOPROLOL SUCCINATE 25 MG TAB XL PO SCH (08:45)
[2019-11-04 08:46] VITALS: BP 148/67
[2019-11-04 13:03] VITALS: BP 135/73
--- NOTE | 2019-11-04 13:24 | NUR ---
RETIREMENT FACILITY DISCHARGE INFORMATION PATIENT HAS BEEN ACCEPTED TO: NAME: [facility] ADDRESS:[id number] ACCEPTING MD: ELIZABETH ROOM:114 NURSE CALL REPORT TO: [phone] IMM SIGNED AND OBTAINED (if applicable): IMM THE FOLLOWING DOCUMENTS MUST ACCOMPANY PATIENT FOR TRANSFER: COPIED CHART: PACKET
--- NOTE | 2019-11-04 13:30 | NUR ---
administered soap suds enema with pt lying on right side. pt tolerated well and was able to have BM
[2019-11-04] MEDS: MORPHINE SULFATE INJ 4 MG/ML INJ 1ML IV PRN (14:30)
[2019-11-04] MEDS: ONDANSETRON HCL INJ 2MG/ML 2ML 2 MG/ML VIAL IV PRN (14:30)
--- NOTE | 2019-11-04 14:48 | NUR ---
called report to CHAPITO Vargas at [facility]
--- NOTE | 2019-11-09 13:29 | Consultation ---
DATE OF CONSULTATION: 11/03/2019 CHIEF COMPLAINT: Right hip pain. HISTORY OF PRESENT ILLNESS: The patient is an 78-year-old lady, who is status post a right total hip replacement in 2011. The hip has given her no problems. She had gynecologic/bladder suspension surgery within the last 5 days. She was discharged home and is readmitted with some bladder retention. There was some concern that her postsurgical pain may involve her right hip replacement. PAST MEDICAL HISTORY: As above. Additional concerns of arthritis and hypertension. PREVIOUS SURGERIES: Right total hip replacement in April 2012 and bilateral carpal tunnel releases. MEDICATIONS: See admission list. ALLERGIES: PENICILLIN. SOCIAL HISTORY: She does not smoke or drink. She is . She has four grown children. PHYSICAL EXAMINATION: GENERAL: She is awake, alert, and oriented. She is in no acute distress. She has fluid passive range of motion of her right hip. There were no signs of discomfort. Limb lengths were equal. Her incision is soft and nontender. She has no tension signs. She has some mild discomfort in her gluteal region. LABORATORY STUDIES: X-rays show a well-fixed and aligned cemented [place] total hip replacement. There is no sign of any abnormality such as a periosteal reaction or otherwise. Her white blood cell count is also not elevated. IMPRESSION: Status post right total hip replacement approximately 8 years ago. I provided reassurance to the patient that I do not see any abnormality in the right hip. This hip has previously not given her any problems and she had no recent history of trauma. She had a bladder suspension about five days ago. I suspect her symptoms are postsurgical. No further orthopedic intervention is needed. She is welcome to return to see us electively as an outpatient. Thank you for the consultation. Abimael Bright MD DR/MELLY /[id number] GENARO
== END 2019-11-04 15:47 | DRG 699 ==
LOC: ER 13:17 → ERHOLD 16:18 → IMCU 19:49 → MED/SURG 10-31 17:02 → OBSVTOIN 10-31 18:18
PROVIDERS: ADMIT Internal Medicine; ATTEND Internal Medicine
DX: T83.518A Infection and inflammatory reaction due to other urinary catheter, initial encounter (principal); N39.0 Urinary tract infection, site not specified; M16.11 Unilateral primary osteoarthritis, right hip; K21.9 Gastro-esophageal reflux disease without esophagitis; M48.9 Spondylopathy, unspecified; B96.20 Unspecified Escherichia coli [E. coli] as the cause of diseases classified elsewhere; R33.9 Retention of urine, unspecified; M81.0 Age-related osteoporosis without current pathological fracture; Z96.641 Presence of right artificial hip joint; N31.9 Neuromuscular dysfunction of bladder, unspecified; G62.9 Polyneuropathy, unspecified
CPT/HCPCS: 36415; 71046; 74177; 80048; 80053; 81001; 85025; 86850; 86900; 87086; 87186; 88307; 93005; 97139; 99284; G0378; J1100; J1170; J1650; J2001; J2060; J2175; J2270; J2405; J3010; J7030; J7121; Q9967